=== PATIENT | male | born 1960 | race Caucasian/White ===

== ENCOUNTER 2017-12-06 11:19 | Day surgery (SDC) | payer OTHER ==
[~2017-12-06 11:19] MED LIST: CEFAZOLIN 2 GM/50 ML (PMX) 50 ML IVPB; SOD CHLORIDE 0.9% 1,000 ML IV
[2017-12-06 12:24] LABS: ADD MAN DIFF? NO
[2017-12-06 12:30] LABS: WHITE BLOOD COUNT 11.2 10^3/ul (4.8-10.8)
[2017-12-06 12:30] LABS: BASOPHIL # 0.1 10^3/ul (0.0-0.1); BASOPHILS % 0.6 % (0.0-2.0); EOSINOPHILS # 0.5 10^3/ul (0.0-0.5); EOSINOPHILS % 4.4 % (0.0-7.0); HEMATOCRIT 46.4 % (42.0-52.0); HEMOGLOBIN 15.5 g/dl (14.0-18.0); LYMPHOCYTES # 1.5 10^3/ul (0.8-2.9); LYMPHOCYTES % 13.2 % (15.0-51.0); MEAN CORPUSCULAR HEMOGLOBIN 29.8 pg (29.0-33.0); MEAN CORPUSCULAR HGB CONC 33.4 g/dl (32.0-37.0); MEAN CORPUSCULAR VOLUME 89.2 fl (82.0-101.0); MEAN PLATELET VOLUME 10.1 fl (7.4-10.4); MONOCYTE # 0.8 10^3/ul (0.3-0.9); MONOCYTES % 7.1 % (0.0-11.0); NEUTROPHIL # 8.2 10^3/ul (1.6-7.5); NEUTROPHILS % 73.6 % (39.0-77.0); PLATELET COUNT 279 10^3/UL (140-415); RED CELL DISTRIBUTION WIDTH 13.9 % (11.5-14.5)
[2017-12-06 12:49] LABS: ALANINE AMINOTRANSFERASE 52 IU/L (13-69); ALBUMIN 4.5 g/dl (3.3-4.9); ALBUMIN/GLOBULIN RATIO 1.36; ALKALINE PHOSPHATASE 90 IU/L (42-121); ANION GAP 12 (8-16); ASPARTATE AMINO TRANSFERASE 36 IU/L (15-46); BILIRUBIN,INDIRECT 0.4 mg/dl (0-1.1); BILIRUBIN,TOTAL 0.4 mg/dl (0.2-1.3); CARBON DIOXIDE 32 mmol/L (21-31); CHLORIDE 103 mmol/L (97-110); GLUCOSE 105 mg/dl (70-220); PROTIME 12.2 Sec (11.9-14.9); TOTAL PROTEIN 7.8 g/dl (6.1-8.1)
[2017-12-06 12:50] LABS: PARTIAL THROMBOPLASTIN TIME 30.5 Sec (25.0-35.0)
[2017-12-06 12:53] LABS: BLOOD UREA NITROGEN 18 mg/dl (7-20); CALCIUM 10.2 mg/dl (8.4-10.2); POTASSIUM 4.1 mmol/L (3.5-5.1); SODIUM 143 mmol/L (135-144)
[2017-12-06] MEDS ORDERED: MIDAZOLAM 1 MG/ML 2 ML INJ (14:45)
[2017-12-06] MEDS ORDERED: ROCURONIUM 50 MG INJ (15:39)
[2017-12-06] MEDS ORDERED: PROPOFOL 20 ML (15:39)
[2017-12-06] MEDS ORDERED: LIDOCAINE 2% (SDV) 5 ML INJ (15:39)
[2017-12-06] MEDS ORDERED: NEOSTIGMINE 3 MG/3 ML SYRINGE (15:40)
[2017-12-06] MEDS ORDERED: CEFAZOLIN 1 GM INJ (15:40)
[2017-12-06] MEDS ORDERED: GLYCOPYRROLATE 0.4 MG INJ (15:40)
[2017-12-06] MEDS ORDERED: ONDANSETRON 4 MG INJ (15:41)
[2017-12-06] MEDS ORDERED: HYDROmorphONE (0.2 MG/ML) 10ML SYG IV ×2 (16:00)
[2017-12-06] MEDS ORDERED: FENTAnyl 50 MCG/ML VIAL IV (16:00)
[2017-12-06] MEDS ORDERED: LABETALOL HCL 20MG INJ IV (16:00)
[2017-12-06] MEDS ORDERED: MIDAZOLAM 1 MG/ML 2 ML INJ IV (16:00)
[2017-12-06] MEDS ORDERED: hydrALAzine 20 MG INJ IV (16:00)
[2017-12-06] MEDS ORDERED: MEPERIDINE 25 MG INJ IV (16:00)
[2017-12-06] MEDS ORDERED: DIPHENHYDRAMINE 50 MG INJ IV (16:00)
[2017-12-06] MEDS: ONDANSETRON 4 MG INJ IV (17:12)
[2017-12-06] MEDS: METOCLOPRAMIDE 10 MG INJ IV (17:40)
== END 2017-12-06 18:05 | disposition home or self-care (01) ==
LOC: SDS 11:19
DX: K42.9 Umbilical hernia without obstruction or gangrene (principal)
CPT/HCPCS: 49585; 71045; 80053; 85025; 85610; 85730; 88302; 93005